=== PATIENT | female | born 1995 | race American Indian/Alaskan Native ===

== ENCOUNTER 2020-08-01 08:16 | Day surgery (SDC) | payer MEDICAID, OTHER ==
[~2020-08-01 08:16] MED LIST: SODIUM CHLORIDE 0.9% 1000 ML 1,000 ML IV SCH
--- NOTE | 2020-08-01 08:47 | Anesthesia Consultation ---
Anesthesia Consult and Med Hx Date of service: 08/01/20 - Airway Anesthetic Teeth Evaluation: Good ROM Head & Neck: Adequate Mental/Hyoid Distance: Adequate Mallampati Class: Class I Intubation Access Assessment: Good - Pre-Operative Health Status ASA Pre-Surgery Classification: ASA2 Proposed Anesthetic Plan: MAC - Pulmonary Hx Smoking: No Hx Respiratory Symptoms: No Hx Sleep Apnea: Yes (no CPAP prescribed) - Cardiovascular System Hx Hypertension: No - Central Nervous System CVA: No - Endocrine Hx Renal Disease: No Hx Liver Disease: No Hx Insulin Dependent Diabetes: No Hx Non-Insulin Dependent Diabetes: No Hx Thyroid Disease: No - Other Systems Hx Obesity: Yes (BMI 37) - Additional Comments Anesthesia Medical History Comments: No hx anesthetic complications.
--- NOTE | 2020-08-01 08:47 | Anesthesia Day of Surgery ---
Anesthesia Day of Surgery - Day of Surgery Patient Examined: Yes Patient H&P Reviewed: Yes Patient is NPO: Yes
[2020-08-01] MEDS ORDERED: propofoL 200 MG/20 ML VIAL IV ONE (10:00)
--- NOTE | 2020-08-01 10:47 | Procedure Note ---
Date of procedure: 08/01/20 Pre-op diagnosis: GERD and Abdominal Pain Post-op diagnosis: other (Mild to Moderate Erosive Esophagitis/Gastritis/ R/O Eosinophilc esophagitis and R/O Celiac disease) Procedure: EGD with Biopsy Anesthesia: MAC Surgeon: BILL HENDERSON Estimated blood loss: minimal Pathology: list Specimen disposition: to lab Condition: stable Disposition: same day (Treat with PPI and Baclofen. Avoid aspirin and NSAID for 4 days; otherwise resume home medication and follow up in 1 to 2 weeks ).)
--- NOTE | 2020-08-01 11:16 | Operative Report ---
PROCEDURE: EGD with biopsy. INDICATIONS: This is a 24-year-old slightly obese female complaining of GERD symptoms and abdominal pain that had prompted her to go to the hospital Emergency Room. She is having an EGD done to further assess for any associated upper GI pathology. DESCRIPTION OF PROCEDURE: The procedure was done after getting informed consent with MAC anesthesia. Instrument was passed through the hypopharynx into the esophagus, which showed [id number] erosive esophagitis. Biopsy was done from the distal esophagus as well as the mid esophagus to assess for the severity of the erosive esophagitis and to rule out eosinophilic esophagitis. Photodocumentation was also obtained. The stomach showed antral gastritis. Biopsy was done from the gastric antrum, gastric body and angular incisura to rule out for H. pylori and atrophic gastritis. The pylorus was patent. The duodenum in the first and second portion appeared normal. Biopsy was done from the second part to rule out for possible celiac disease. There was minimal bleeding associated with the procedure. No complications associated with the procedure. ASSESSMENT: Gastroesophageal reflux disease symptoms, abdominal pain, [id number] erosive esophagitis, rule out eosinophilic esophagitis, gastritis, rule out celiac disease. PLAN: To treat the patient with PPI as well as baclofen at bedtime, have the patient avoid aspirin and aspirin-related products for the next 5 days. Otherwise, resume home medication. Advised the patient to refrain from tobacco and alcohol products and follow up in the office in 1-2 weeks' time. The procedure was done in the GI lab with assistance of the GI lab team, which included Magnolia ARAUZ; Glenn marlow and with assistance of anesthesia. JOB# [id number] CHRIS/MAURILIO
[2020-08-01 11:19] VITALS: BP 113/72
--- NOTE | 2020-08-01 12:29 | Post Anesthesia Evaluation ---
- Post Anesthesia Evaluation Patient Participated: Yes Airway Patent: Yes Stable Respiratory Function: Yes Nausea/Vomiting: No Temp > 96.8F: Yes Pain Manageable: Yes Adequeate Hydration: Yes Anesthesia Complications: No
== END 2020-08-01 11:50 | disposition home or self-care (01) ==
LOC: GIO 08:16
DX: K21.00 Gastro-esophageal reflux disease with esophagitis, without bleeding (principal); R10.9 Unspecified abdominal pain; K31.89 Other diseases of stomach and duodenum; K29.70 Gastritis, unspecified, without bleeding; G47.30 Sleep apnea, unspecified; E66.9 Obesity, unspecified; F32.9 Major depressive disorder, single episode, unspecified; Z68.37 Body mass index [BMI] 37.0-37.9, adult; Z88.6 Allergy status to analgesic agent; Z79.899 Other long term (current) drug therapy
CPT/HCPCS: 43239; 81025; 88305; 88342; J2704; J7030

== ENCOUNTER 2020-11-23 12:15 | Emergency (ER) | payer OTHER ==
[2020-11-23 12:37] VITALS: BP 113/72
[2020-11-23 13:05] LABS: Basophils # (Auto) 0.1 K/mm3 (0.0-0.1); Basophils % (Auto) 0.7 % (0.0-1.8); Eosinophils # (Auto) 0.1 K/mm3 (0.0-0.4); Eosinophils % (Auto) 0.8 % (0.0-4.3); Hematocrit 32.8 % (30.3-42.9); Hemoglobin 10.9 gm/dl (10.1-14.3); Lymphocytes # (Auto) 1.9 K/mm3 (1.2-5.4); Lymphocytes % (Auto) 18.3 % (13.4-35.0); Mean Corpuscular HGB Conc 33 % (30-34); Mean Corpuscular Volume 78 fl (79-97); Monocytes # (Auto) 0.6 K/mm3 (0.0-0.8); Monocytes % (Auto) 5.8 % (0.0-7.3); Platelet Count 214 K/mm3 (140-440)
[2020-11-23 13:27] LABS: Alanine Aminotransferase 10 units/L (7-56); Albumin 4.1 g/dL (3.9-5); Blood Urea Nitrogen 10 mg/dL (7-17); Calcium 8.9 mg/dL (8.4-10.2); Hemolysis Index 1
[2020-11-23 13:28] LABS: BUN/Creatinine Ratio 14
--- NOTE | 2020-11-23 14:07 | Emergency Department Report ---
ED General Adult HPI - General Chief complaint: Abdominal Pain Stated complaint: ABDOMINAL PAIN / CHEST PAIN X4 DAYS Time Seen by Provider: 11/23/20 13:52 Source: patient Mode of arrival: Ambulatory Limitations: No Limitations - History of Present Illness Initial comments: Patient is a 25-year-old female presents emergency room with complaints of upper abdominal discomfort that radiates up into her chest that began 4 days ago. She states it feels like a burning sensation. She states it is worse after eating and occasionally after eating she feels nauseous. She states she did take an aspirin last week which she feels like irritated her stomach. She has a history of GERD and states that she was previously on pantoprazole. States she has been out of her medications since September. She states that she has attempted to follow- up with her GI doctor but has been unsuccessful. She denies any fever, vomiting, diarrhea, shortness of breath, pleuritic chest pain, leg swelling, hematochezia, melena, hematemesis. Allergy to amoxicillin. Last menstrual cycle beginning of November. - Related Data Home Medications Medication Instructions Recorded Confirmed Last Taken Dextroamphetamine/Amphetamine 25 mg PO QDAY 04/08/15 04/08/15 Unknown [Adderall XR 25 mg] Sertraline [Zoloft] 25 mg PO QDAY 04/08/15 04/08/15 Unknown hydrOXYzine PAMOATE [Vistaril] 50 mg PO DAILY 04/08/15 04/08/15 Unknown Previous Rx's Medication Instructions Recorded Last Taken Type Sertraline [Zoloft] 25 mg PO QDAY #14 tab 04/09/15 Unknown Rx Brompheniramine/Pseudoephed/Dm 10 ml PO Q12HR #118 ml 05/29/15 Unknown Rx [Bromfed Dm Cough Syrup] Baclofen [Lioresal] 10 mg PO QHS 30 Days #30 tablet 08/01/20 Unknown Rx Pantoprazole [Protonix] 40 mg PO QDAY 30 Days #30 tablet 08/01/20 Unknown Rx Pantoprazole [Protonix TAB] 40 mg PO QDAY #30 tablet 11/23/20 Unknown Rx Sucralfate [Carafate] 1 gm PO ACHS 7 Days #21 tablet 11/23/20 Unknown Rx Allergies Allergy/AdvReac Type Severity Reaction Status Date / Time amoxicillin Allergy Angioedema Verified 11/23/20 12:29 ED Review of Systems ROS: Stated complaint: ABDOMINAL PAIN / CHEST PAIN X4 DAYS Other details as noted in HPI Comment: All other systems reviewed and negative ED Past Medical Hx - Past Medical History Hx Hypertension: No Hx GERD: Yes Hx Liver Disease: No Hx Renal Disease: No Hx Psychiatric Treatment: Yes (depression, suicidal thoughts - IP Viewpoint) Additional medical history: GASTRITIS - Surgical History Additional Surgical History: ENDOSCOPY - Social History Smoking Status: Never Smoker Substance Use Type: None - Medications Home Medications: Home Medications Medication Instructions Recorded Confirmed Last Taken Type Dextroamphetamine/Amphetamine 25 mg PO QDAY 04/08/15 04/08/15 Unknown History [Adderall XR 25 mg] Sertraline [Zoloft] 25 mg PO QDAY 04/08/15 04/08/15 Unknown History hydrOXYzine PAMOATE [Vistaril] 50 mg PO DAILY 04/08/15 04/08/15 Unknown History Sertraline [Zoloft] 25 mg PO QDAY #14 tab 04/09/15 Unknown Rx Brompheniramine/Pseudoephed/Dm 10 ml PO Q12HR #118 ml 05/29/15 Unknown Rx [Bromfed Dm Cough Syrup] Baclofen [Lioresal] 10 mg PO QHS 30 Days #30 tablet 08/01/20 Unknown Rx Pantoprazole [Protonix] 40 mg PO QDAY 30 Days #30 tablet 08/01/20 Unknown Rx Pantoprazole [Protonix TAB] 40 mg PO QDAY #30 tablet 11/23/20 Unknown Rx Sucralfate [Carafate] 1 gm PO ACHS 7 Days #21 tablet 11/23/20 Unknown Rx ED Physical Exam - General Limitations: No Limitations General appearance: alert, in no apparent distress - Head Head exam: Present: atraumatic, normocephalic - Eye Eye exam: Present: normal appearance - ENT ENT exam: Present: mucous membranes moist - Respiratory Respiratory exam: Present: normal lung sounds bilaterally. Absent: respiratory distress, wheezes, rales, rhonchi, stridor, chest wall tenderness, accessory muscle use, decreased breath sounds, prolonged expiratory - Cardiovascular Cardiovascular Exam: Present: regular rate, normal rhythm, normal heart sounds. Absent: systolic murmur, diastolic murmur, rubs, gallop - GI/Abdominal GI/Abdominal exam: Present: soft, normal bowel sounds. Absent: distended, tenderness, guarding, rebound, rigid - Neurological Exam Neurological exam: Present: alert, oriented X3 - Psychiatric Psychiatric exam: Present: normal affect, normal mood - Skin Skin exam: Present: warm, dry, intact ED Course Vital Signs 11/23/20 11/23/20 12:33 12:35 Temperature 99 F Pulse Rate 74 Respiratory 20 Rate Blood Pressure 113/72 O2 Sat by Pulse 100 Oximetry ED Medical Decision Making - Lab Data Result diagrams: 11/23/20 12:43 11/23/20 12:43 Lab Results 11/23/20 11/23/20 11/23/20 Range/Units 12:43 12:43 12:43 WBC 10.4 (4.5-11.0) K/mm3 RBC 4.20 (3.65-5.03) M/mm3 Hgb 10.9 (10.1-14.3) gm/dl Hct 32.8 (30.3-42.9) % MCV 78 L (79-97) fl MCH 26 L (28-32) pg MCHC 33 (30-34) % RDW 16.0 H (13.2-15.2) % Plt Count 214 (140-440) K/mm3 Lymph % (Auto) 18.3 (13.4-35.0) % Brown % (Auto) 5.8 (0.0-7.3) % Eos % (Auto) 0.8 (0.0-4.3) % Baso % (Auto) 0.7 (0.0-1.8) % Lymph # (Auto) 1.9 (1.2-5.4) K/mm3 Brown # (Auto) 0.6 (0.0-0.8) K/mm3 Eos # (Auto) 0.1 (0.0-0.4) K/mm3 Baso # (Auto) 0.1 (0.0-0.1) K/mm3 Seg Neutrophils % 74.4 H (40.0-70.0) % Seg Neutrophils # 7.7 (1.8-7.7) K/mm3 Sodium 140 (137-145) mmol/L Potassium 4.1 (3.6-5.0) mmol/L Chloride 104.6 (98-107) mmol/L Carbon Dioxide 25 (22-30) mmol/L Anion Gap 15 mmol/L BUN 10 (7-17) mg/dL Creatinine 0.7 (0.6-1.2) mg/dL Estimated GFR > 60 ml/min BUN/Creatinine Ratio 14 % Glucose 91 (65-100) mg/dL Calcium 8.9 (8.4-10.2) mg/dL Total Bilirubin 0.40 (0.1-1.2) mg/dL AST 11 (5-40) units/L ALT 10 (7-56) units/L Alkaline Phosphatase 81 (35-129) units/L Total Protein 7.4 (6.3-8.2) g/dL Albumin 4.1 (3.9-5) g/dL Albumin/Globulin Ratio 1.2 % HCG, Qual Negative (Negative) - EKG Data EKG shows normal: sinus rhythm, axis, intervals, QRS complexes, ST-T waves Rate: bradycardia (59 bpm) - Medical Decision Making Patient is a 25-year-old female presents emergency room with complaints of upper abdominal discomfort that radiates up into her chest that began 4 days ago. She states it feels like a burning sensation. She states it is worse after eating and occasionally after eating she feels nauseous. She states she did take an aspirin last week which she feels like irritated her stomach. She has a history of GERD and states that she was previously on pantoprazole. States she has been out of her medications since September. She states that she has attempted to follow-up with her GI doctor but has been unsuccessful. She denies any fever, vomiting, diarrhea, shortness of breath, pleuritic chest pain, leg swelling, hematochezia, melena, hematemesis. Allergy to amoxicillin. Last menstrual cycle beginning of November. Vitals are normal. Orders placed prior to my examination. Labs are normal. EKG is within normal limits. Patient is presenting with symptoms most consistent with GERD versus PUD. Patient states that she has been out of her medication. Patient will be given prescriptions for medications and GI follow-up. Discuss strict return precautions with patient and the importance of reexamination. Advised patient Please take medication as prescribed. Increase your water intake. Please follow the diet for acid reflux. Follow-up with a GI doctor. Follow-up with your primary care doctor. Return to emergency room for new or worsening symptoms. Critical care attestation.: If time is entered above; I have spent that time in minutes in the direct care of this critically ill patient, excluding procedure time. ED Disposition Clinical Impression: GERD (gastroesophageal reflux disease) Qualifiers: Esophagitis presence: without esophagitis Qualified Code(s): K21.9 - Gastro- esophageal reflux disease without esophagitis Disposition: TO HOME OR SELFCARE Is pt being admited?: No Does the pt Need Aspirin: No Condition: Stable Instructions: Food Choices for Gastroesophageal Reflux Disease, Adult, [id number], Gastroesophageal Reflux Disease, Adult, [id number], Abdominal Pain (ED) Additional Instructions: Please take medication as prescribed. Increase your water intake. Please follow the diet for acid reflux. Follow-up with a GI doctor. Follow-up with your primary care doctor. Return to emergency room for new or worsening symptoms. Prescriptions: Sucralfate [Carafate] 1 gm PO ACHS 7 Days #21 tablet Pantoprazole [Protonix TAB] 40 mg PO QDAY #30 tablet Referrals: BILL HENDERSON MD [Staff Physician] - 3-5 Days [facility] [Provider Group] - 3-5 Days Forms: Accompanied Note Time of Disposition: 14:01 Print Language: DANISH
--- NOTE | 2020-11-24 17:57 | Electrocardiograph Report ---
[facility] Test Date: 2020-11-23 Test Time: 12:40:59 Pat Name: ML SIMPSON Department: Room: Gender: F Sales Account Specialist: EMILEE : 1995 Requested By: DESHAUN ARVIZU Order Number: [id number] Reading MD: Jovana Sorensen Measurements Intervals [place] Rate: 59 P: 27 ME: 149 QRS: -2 QRSD: 91 T: 10 QT: 454 QTc: 451 Interpretive Statements Sinus bradycardia No previous ECG available for comparison Electronically Signed On 11-24-2020 17:57:37 EDT by Jovana Sorensen
== END 2020-11-23 14:30 | disposition home or self-care (01) ==
LOC: ED 12:15
DX: K21.9 Gastro-esophageal reflux disease without esophagitis (principal); F32.9 Major depressive disorder, single episode, unspecified; Z88.0 Allergy status to penicillin; Z79.899 Other long term (current) drug therapy
CPT/HCPCS: 36415; 80053; 84703; 85025; 93005

== ENCOUNTER 2021-04-18 11:29 | Emergency (ER) | payer SELFPAY ==
[2021-04-18 11:34] VITALS: BP 103/51
--- NOTE | 2021-04-18 11:48 | Emergency Department Report ---
HPI - General Chief Complaint: Back Pain/Injury Time Seen by Provider: 04/18/21 11:37 - HPI HPI: 25-year-old -[place] female presents to the emergency department with a complaint of a 2-day history of low back pain. Patient says that she was using the toilet on , 2 days ago, and had trouble getting up off of the toilet. She suddenly had left-sided cramping flank pain and she fell forwards onto her knees. She says that she had trouble getting up off the ground until her friend brought her some water and helped her get up. A friend said that maybe she was having issues with constipation so they gave her some milk of magnesia but the patient says that this made the pain worse. Since that time the pain has changed to the low back. Currently the pain is 7 out of 10 in intensity. It worsens when she is laying flat and trying to get up from the laying position or with ambulation. She denies any problems with bowel or bladder, numbness or paresthesias, or any other neurological deficits. Patient says that something like this is happened to her previously and it was from a UTI. She tried some naproxen for her symptoms without any relief. ED Past Medical Hx - Past Medical History Hx Hypertension: No Hx GERD: Yes Hx Liver Disease: No Hx Renal Disease: No Hx Psychiatric Treatment: Yes (depression, suicidal thoughts - IP Viewpoint) Additional medical history: GASTRITIS - Surgical History Additional Surgical History: ENDOSCOPY - Social History Smoking Status: Never Smoker Substance Use Type: None - Medications Home Medications: Home Medications Medication Instructions Recorded Confirmed Last Taken Type Dextroamphetamine/Amphetamine 25 mg PO QDAY 04/08/15 04/08/15 Unknown History [Adderall XR 25 mg] Sertraline [Zoloft] 25 mg PO QDAY 04/08/15 04/08/15 Unknown History hydrOXYzine PAMOATE [Vistaril] 50 mg PO DAILY 04/08/15 04/08/15 Unknown History Sertraline [Zoloft] 25 mg PO QDAY #14 tab 04/09/15 Unknown Rx Brompheniramine/Pseudoephed/Dm 10 ml PO Q12HR #118 ml 05/29/15 Unknown Rx [Bromfed Dm Cough Syrup] Baclofen [Lioresal] 10 mg PO QHS 30 Days #30 tablet 08/01/20 Unknown Rx Pantoprazole [Protonix] 40 mg PO QDAY 30 Days #30 tablet 08/01/20 Unknown Rx Pantoprazole [Protonix TAB] 40 mg PO QDAY #30 tablet 11/23/20 Unknown Rx Sucralfate [Carafate] 1 gm PO ACHS 7 Days #21 tablet 11/23/20 Unknown Rx Cyclobenzaprine [Flexeril] 10 mg PO TID PRN #12 tablet 04/18/21 Unknown Rx Ibuprofen [Motrin 800 MG tab] 800 mg PO Q8HR PRN #20 tablet 04/18/21 Unknown Rx ED Review of Systems ROS: Stated complaint: BACK AND ABDOMINAL PAIN Other details as noted in HPI Comment: All other systems reviewed and negative Constitutional: denies: chills, fever Respiratory: denies: shortness of breath Cardiovascular: denies: chest pain Gastrointestinal: abdominal pain (intermittent lower abd cramping pain). denies: vomiting Genitourinary: denies: dysuria, discharge Musculoskeletal: back pain. denies: joint swelling Neurological: denies: weakness, numbness, paresthesias Physical Exam - Physical Exam Vital Signs: Vital Signs 04/18/21 11:33 Temperature 98.9 F Pulse Rate 64 Respiratory 18 Rate Blood Pressure 103/51 O2 Sat by Pulse 99 Oximetry Physical Exam: GENERAL: The patient is well-developed well-nourished. HENT: Normocephalic. Atraumatic. Patient has moist mucous membranes. EYES: Extraocular motions are intact. NECK: Supple. Trachea is midline. ABDOMEN: Abdomen is soft, nontender. Patient has normal bowel sounds. SKIN: Skin is warm and dry. NEURO: The patient is awake, alert, and oriented. The patient is cooperative. Normal speech. DTR patella +2/4 bilaterally. MUSCULOSKELETAL: There is no tenderness or deformity. There is no limitation range of motion. Muscle strength 5 out of 5 for bilateral lower extremities including EHL. BACK: There is both midline and bilateral paraspinal lumbar tenderness to palpation. ED Course Vital Signs 04/18/21 11:33 Temperature 98.9 F Pulse Rate 64 Respiratory 18 Rate Blood Pressure 103/51 O2 Sat by Pulse 99 Oximetry ED Medical Decision Making - Lab Data Lab Results 04/18/21 Range/Units Unknown Urine Color Yellow (Yellow) Urine Turbidity Clear (Clear) Urine pH 7.0 (5.0-7.0) Ur Specific [place] 1.012 (1.003-1.030) Urine Protein <15 mg/dl (Negative) mg/dL Urine Glucose (UA) Neg (Negative) mg/dL Urine Ketones Neg (Negative) mg/dL Urine Blood Neg (Negative) Urine Nitrite Neg (Negative) Urine Bilirubin Neg (Negative) Urine Urobilinogen < 2.0 (<2.0) mg/dL Ur Leukocyte Esterase Neg (Negative) Urine WBC (Auto) 1.0 (0.0-6.0) /HPF Urine RBC (Auto) 1.0 (0.0-6.0) /HPF U Epithel Cells (Auto) 4.0 (0-13.0) /HPF Urine HCG, Qual Negative (Negative) - Medical Decision Making This patient presents with a 2-day history of low back pain and a fall. Initially it was left flank pain but that is since resolved and now it is just the nonradiating back pain. On examination there is some reproducible midline and bilateral paraspinal lumbar tenderness to palpation. Otherwise patient appears neurovascularly intact. She has full muscle strength. She was seen ambulatory without any signs of instability. The patient thought it could be related to a urinary tract infection and also questioned, per her mother, whether she could have a kidney stone. Urinalysis was clean without any significant number of white or red blood cells in the urine. She does not have a urinary tract infection. Given the area of her pain in the low lumbar back, t he ability to reproduce some of her pain to palpation, the lack of hematuria, it appears lower suspicion that the patient has a kidney stone, especially an obstructing stone or 1 of moderate size. Patient denies any problems with bowel or bladder, numbness or paresthesias, or any neurological deficits. She also appears low suspicion for any of the emergent back condition such as cauda equina, epidural abscess or cord compression syndrome. For all these reasons patient appears safe for discharge home at this time. She has been given a shot of Toradol here. She will be given a prescription for anti-inflammatories and a muscle relaxer. She has been given an outpatient referral for a local neurosurgeon to follow-up regarding her back pain. She will return to the ER with any worsening of her symptoms or with any acute distress. Critical Care Time: No Critical care attestation.: If time is entered above; I have spent that time in minutes in the direct care of this critically ill patient, excluding procedure time. ED Disposition Clinical Impression: Low back pain Qualifiers: Chronicity: acute Back pain laterality: bilateral Sciatica presence: without sciatica Qualified Code(s): M54.50 - Low back pain, unspecified Disposition: HOME / SELF CARE / HOMELESS Is pt being admited?: No Condition: Stable Instructions: Acute Back Pain, Adult Additional Instructions: Please follow-up with a primary care provider in the next few days. I am giving you a referral for a local neurosurgeon, Dr. Montez, to follow-up regarding your low back pain. You have been prescribed a medication that is sedating and therefore should not be taken prior to driving, working, and responsible for children and in no way should be mixed with alcohol of any quantity. Return to the emergency department with any worsening of your symptoms, new or concerning symptoms not addressed during this current emergency department visit, or with any acute distress. Prescriptions: Cyclobenzaprine [Flexeril] 10 mg PO TID PRN #12 tablet PRN Reason: Muscle Spasm Ibuprofen [Motrin 800 MG tab] 800 mg PO Q8HR PRN #20 tablet PRN Reason: Pain , Severe (7-10) Referrals: PRIMARY CARE, [Primary Care Provider] - 2-3 Days ABHISHEK MONTEZ II, MD [Staff Physician] - 2-3 Days Time of Disposition: 13:17
[2021-04-18 12:35] LABS: Bilirubin,Urine NEG (Negative); Blood,Urine NEG (Negative); Color,Urine Yellow (Yellow); Protein,Urine <15 mg/dL mg/dL (Negative); Urobilinogen,Urine < 2.0 mg/dL (<2.0)
[2021-04-18 12:44] LABS: HCG Qualitative,Urine Negative (Negative)
[2021-04-18] MEDS ORDERED: KETOROLAC 30 MG/1 ML INJ IM ONE (13:01)
== END 2021-04-18 13:45 | disposition home or self-care (01) ==
LOC: ED 11:29
DX: M54.50 Low back pain, unspecified (principal); K21.9 Gastro-esophageal reflux disease without esophagitis; F32.9 Major depressive disorder, single episode, unspecified; Z98.890 Other specified postprocedural states
CPT/HCPCS: 81001; 81025; 96372; 99283; J1885